=== PATIENT | male | born 1965 | race Asian ===

== ENCOUNTER → 2020-08-29 | Day surgery (SDC) | payer MEDICARE, MEDICAID ==
[~2020-08-29] VITALS: Ht 185.4 cm; Wt 120.7 kg
[~2020-08-29] MED LIST: ABIL10 PO; ACET-2708 PO; ACETYLCHOLINE CHLORIDE INTRAOCULAR SOLUTION 1:100 ELECTROLYTE DILUENT IO ONE; AMLO10TA80 PO; ASCO-339 PO; BALANCED SALT IRRIG SOLN 15ML ONE; BALANCED SALT IRRIG SOLN COMB1 500ML OP SCH; BUPIVACAINE HCL/PF 0.75% (7.5MG/ML) 10ML ONE; CEFAZOLIN SODIUM 1000MG/VIAL ONE; DIVA-18 PO; DOCU250C69 PO; FENTANYL CITRATE/PF 50MCG/ML 2ML VIAL ONE; GLIP1TAB5 PO; GLYCOPYRROLATE 0.2 MG/ML 2ML VIAL ONE; HYALURONATE SODIUM 10 MG/ML 0.55ML SYRINGE IO ONE; INSU100V3 SUBCUT; LEVO100T PO; LIDOCAINE HCL 2%/EPINEPHRINE 1:100,000 20 ML VIAL INFIL ONE; METOCLOPRAMIDE HCL 10MG/2ML VIAL ONE; MIDAZOLAM HCL 2 MG/2 ML VIAL ONE; MULT-1146 PO; NEOSTIGMINE METHYLSULFATE 1MG/ML 10 ML VIAL ONE; ONDANSETRON HCL 4MG/2ML INJ ONE; PHENYLEPHRINE 2.5% OPHTH 15 DROP/ML BOTTLE LEFTEYE SCH; PHENYLEPHRINE HCL 2.5% OPHTH DROPS 2ML ONE; PROPOFOL 200MG/20ML VIAL IV ONE; ROCURONIUM BROMIDE 10MG/ML VIAL 5ML IV ONE; SAW/1TAB2 PO; SODIUM CHLORIDE 0.9% 1,000 ML IV SCH; SUCCINYLCHOLINE CHLORIDE 200MG/10ML IV ONE; TETRACAINE 0.5% OPHTH DROPS 4ML ONE; TOBRAMYCIN/DEXAMETH 0.1/0.3% OPHTH SUSP 2.5ML ONE; TROPICAMIDE 1% OPHTH DROPS 15ML LEFTEYE SCH; TROPICAMIDE 1% OPHTH DROPS 15ML ONE
== END | disposition home or self-care (01) ==
LOC: OR 06:04
PROVIDERS: ATTEND Ophthalmology
DX: E11.36 Type 2 diabetes mellitus with diabetic cataract (principal); H25.89 Other age-related cataract; I10 Essential (primary) hypertension; E03.9 Hypothyroidism, unspecified; E78.00 Pure hypercholesterolemia, unspecified; N40.0 Benign prostatic hyperplasia without lower urinary tract symptoms; E66.9 Obesity, unspecified; F41.9 Anxiety disorder, unspecified; Z79.899 Other long term (current) drug therapy; Z98.890 Other specified postprocedural states; Z79.82 Long term (current) use of aspirin; Z79.84 Long term (current) use of oral hypoglycemic drugs; Z68.35 Body mass index [BMI] 35.0-35.9, adult
CPT/HCPCS: 66984; 82962; J0330; J0690; J2250; J2405; J2704; J2710; J3010; J3490; V2632; J2765